=== PATIENT | female | born 1955 | race Caucasian/White ===

== ENCOUNTER 2024-08-29 20:46 | Emergency (ER) | payer OTHER, SELFPAY ==
[2024-08-29 20:46] VITALS: BMI 28.8
[2024-08-29 21:02] VITALS: BP 157/95
[2024-08-29 21:16] LABS: % Basophils 0.7 % (0-2); % Eosinophils 2.6 % (0-6); % Immature Granulocytes 0.2 % (0-0.5); % Lymphocytes 26.5 % (20.5-51.1); % Monocytes 9.5 % (1.7-9.3); % Neutrophils 60.5 % (42.2-75.2); Absolute Eosinophils 0.1 10^3/uL (0-0.7); Absolute Lymphocytes 1.1 10^3/uL (1.2-3.4); Absolute Monocytes 0.4 10^3/uL (0.1-0.6); Absolute Neutrophils 2.5 10^3/uL (1.4-6.5); Hematocrit 38.5 % (37.0-47.0); Hemoglobin 12.8 g/dL (12.0-16.0); Mean Corp Hgb Conc. 33.2 g/dL (33.0-37.0); Mean Corpuscular Hgb 28.4 pg (27.0-31.0); Mean Corpuscular Volume 85.6 fL (81.0-99.0); Mean Platelet Volume 10.3 fL (7.4-10.4); Nucleated Red Blood Cells % 0 %; Platelet Count 185 10^3/uL (130-400); White Blood Cell Count 4.2 10^3/uL (4.8-10.8)
[2024-08-29 21:25] LABS: Urine Albumin Negative (Neg - Trace); Urine Bilirubin Negative (Negative); Urine Character Clear (Clear); Urine Color Yellow; Urine Glucose Negative (Negative); Urine Ketone Negative (Negative); Urine Leukocyte 1+ (Negative); Urine Nitrite Negative (Negative); Urine Occult Blood Negative (Negative); Urine Specific Gravity 1.005 (<1.030); Urine Urobilinogen Negative (Neg - 1+)
[2024-08-29 21:29] LABS: ALT (SGPT) 15 U/L (0-35); AST (SGOT) 21 U/L (14-36); Albumin 4.5 g/dl (3.5-5.0); Alkaline Phosphatase 72 U/L (38-126); Blood Urea Nitrogen 21 mg/dl (7-17); Carbon Dioxide 32 mmol/L (22-30); Chloride 99 mmol/L (98-107); Glucose 118 mg/dl (70-99); Lipase 158 U/L (23-300); Potassium 3.6 mmol/L (3.5-5.1); Sodium 137 mmol/L (135-145); Total Bilirubin 0.6 mg/dl (0.2-1.3); eGFR > 60.00
[2024-08-29 21:35] LABS: Urine Red Blood Cell 0-2 /HPF (0-2)
[2024-08-29 22:00] VITALS: BP 175/82
[2024-08-29 22:30] VITALS: BP 153/79
[2024-08-29 23:42] LABS: D-Dimer < 0.27 ug/mlFEU (0.00-0.50)
[2024-08-30 00:26] VITALS: BP 167/90
--- NOTE | 2024-08-30 00:54 | ED.GENMED ---
History of Present Illness
General
Chief Complaint: Abdominal Pain
Source: patient
Exam Limitations: none
Time Seen by Provider: 08/29/24 22:31
History of Present Illness
History of Present Illness:
69-year-old female presents complaining of pain to the right upper abdomen that started at 1030 this morning. Has been a constant pain but does come and go in waves. The pain is worse with deep breathing. No known injury. No fever or cough.
There is nausea but no vomiting. No prior abdominal surgical history. No other complaints at this time
Phy Exam
Physical Exam
Physical Exam:
General: Well-appearing female no acute respiratory distress
HEENT: Normocephalic atraumatic
Heart: Regular rate and rhythm
Lungs: Clear no wheeze
Abdomen is soft nontender nondistended
Extremities: No cyanosis
Course
Orders/Labs/Results
Orders:
Orders
08/29/24 21:00
Complete Blood Count/With Diff Urgent
Comprehensive Metabolic Panel Urgent
Lipase Urgent
08/29/24 21:17
Urine Culture Reflexed from UA [Urinalysis Reflex To Culture] Urgent
Date Specimen was Collected: 08/29/24
Time Specimen was Collected: 21:14
Urine Microscopic Reflex Cult Urgent
Urine Culture Urgent
NANI Source: U
Specimen Description:
Date Specimen was Collected: 08/29/24
Time Specimen was Collected: 21:14
08/29/24 22:51
US Abdomen Complete/Upper Urgent
Comment:
Reason For Exam: ruq pain
08/29/24 22:54
D-Dimer Urgent
08/30/24 01:07
CT Abd/pelvis W Iv Cont Urgent
Comment:
Reason For Exam: right upper abdominal pain
Ketorolac [Toradol] 15 mg IV NOW STA
Abnormal Lab Results
08/29/24 08/29/24
21:00 21:17
WBC 4.2 L 10^3/uL
(4.8-10.8)
Absolute Lymphs (auto) 1.1 L 10^3/uL
(1.2-3.4)
Monocytes % 9.5 H %
(1.7-9.3)
Carbon Dioxide 32 H mmol/L
(22-30)
BUN 21 H mg/dl
(7-17)
Glucose 118 H mg/dl
(70-99)
Leukocyte Esterase Rfl 1+ A
(Negative)
08/29/24 21:00
08/29/24 21:00
Vital Signs
Initial and Last Documented VS:
Initial Vital Signs
Pulse Resp BP Pulse Ox
99 20 157/95 99
08/29/24 21:02 08/29/24 21:02 08/29/24 21:02 08/29/24 21:02
Last Documented Vital Signs
Temp Pulse Resp BP Pulse Ox
98.5 F 76 16 167/90 96
08/29/24 22:00 08/29/24 22:54 08/29/24 22:15 08/30/24 00:26 08/30/24 02:15
MDM/Problems Addressed
Differential Diagnosis Includes:
Right upper quadrant abdominal pain pleuritic in nature. Consider biliary colic versus cholecystitis versus PE versus abdominal strain
Ultrasound is negative other than borderline dilated common bile duct at 6.5 mm lipase is normal. D-dimer is negative and I suspect this is unlikely to be PE
*Critical Care Note
Total Time (30-74mins, 75-104mins- exclusive of procedures): Not Applicable
Update Note
Update Note:
Ultrasound shows mildly dilated common bile duct. CT was ordered which shows moderate to large amount of colonic stool to suggest constipation and also sees potentially dilated common bile duct. Pain was relieved with Toradol lipase and liver
functions normal. Question possible musculoskeletal discomfort versus constipation. No gallstones are visualized. Recommend follow-up with GI. She has an appointment in 4 days with GI. No indication for admission
ED Attending Note
-
Portions of this chart may have been created with voice recognition software.� Occasional wrong word or��sound alike� substitutions may have occurred due to the inherent limitations of voice recognition software.
Discharge Plan
Departure
Patient Disposition: Home (Routine Discharge)
Date of Disposition: 08/30/24
Time of Disposition: 02:58
Patient with high blood pressure during this ER visit?: No
Discharge Problem:
Abdominal pain
Instructions: Abdominal Pain
Referrals:
Anastasia Colón CRNP [Family Provider] -
Activity Restrictions/Additional Instructions:
Use ibuprofen or Tylenol for pain. Return here for worsening symptoms otherwise follow-up with GI as planned
Interventions
Interventions:
*Risk Screen - Suicide Last Done: 08/29/24 21:13
*General Assessment Last Done: 08/29/24 21:13
*Neglect/Abuse Screening Last Done: 08/29/24 22:03
*ED- Fall Risk Assessment Last Done: 08/29/24 21:13
*ED COVID-19 Vaccine History Last Done: 08/29/24 21:13
HN-Qjseth-Iscnmjilsb Assessment Last Done: 08/30/24 02:19
Discharge Date and Time
Print Language: SRI LANKAN
[2024-08-30] MEDS: TORADOL 15 MG IV (01:59)
[2024-08-30 03:14] VITALS: BP 152/91
== END 2024-08-30 03:15 | disposition home or self-care (01) ==
LOC: EMR 20:46
PROVIDERS: Emergency Medicine; Physician Assistant; EMERGENCY PHYSICIAN Emergency Medicine; FAMILY PHYSICIAN Nurse Practitioner Family
DX: R10.11 Right upper quadrant pain (principal); K83.8 Other specified diseases of biliary tract; R11.0 Nausea
CPT/HCPCS: 99284; 96374; 74177; 76700; 80053; 81003; 81015; 83690; 85025; 85379; 87086; Q9967

== ENCOUNTER → 2025-03-21 09:23 | Outpatient (REF) | payer OTHER, SELFPAY ==
[2025-03-21 09:43] VITALS: BMI 26.7
[2025-03-21 09:52] VITALS: BP 167/99; BP_SYST 91
[2025-03-21] MEDS: ATIVAN 0.5 MG PO (09:58)
[2025-03-21 10:00] LABS: INR 1.15; PT 15.1 Sec (11.4-14.6)
[2025-03-21 10:02] LABS: Hematocrit 28.9 % (37.0-47.0); Hemoglobin 9.1 g/dL (12.0-16.0); Mean Corp Hgb Conc. 31.5 g/dL (33.0-37.0); Mean Corpuscular Volume 90.9 fL (81.0-99.0); Red Cell Dist. Width 15.2 % (11.5-14.5)
[2025-03-21 10:58] LABS: Platelet Count 89 10^3/uL (130-400)
[2025-03-21 11:17] VITALS: BP 151/97
[2025-03-21 11:18] LABS: Absolute Neutrophils -Man Diff 1.9 10^3/uL (1.4-6.5)
[2025-03-21 11:21] LABS: Normal RBC Morphology No; Platelets Checked Yes
[2025-03-21 11:23] LABS: Total Cells Counted 100
[2025-03-21 11:24] LABS: Rouleaux 2+
[2025-03-21 11:25] LABS: Microcytosis 1+
== END ==
LOC: RADI 09:23
PROVIDERS: ATTENDING PHYSICIAN Internal Medicine Hematology & Oncology; FAMILY PHYSICIAN Nurse Practitioner Family; REFERRING PHYSICIAN Physician Assistant
DX: D69.6 Thrombocytopenia, unspecified (principal); E83.52 Hypercalcemia; D68.8 Other specified coagulation defects; D64.9 Anemia, unspecified; D72.829 Elevated white blood cell count, unspecified
CPT/HCPCS: 36415; 38222; 77012; 80053; 81003; 81015; 82232; 83521; 83615; 83690; 85025; 85610; 85730; 85810; 88305; 88311; 88312; 88313; 93005; 99284

== ENCOUNTER 2025-03-21 16:04 | Emergency (ER) | payer OTHER, SELFPAY ==
[2025-03-21 16:22] VITALS: BP 133/95
[2025-03-21 17:01] LABS: Urine Character Clear (Clear)
[2025-03-21 17:08] LABS: APTT 31.4 Sec (23.4-35.0); INR 1.26; PT 16.1 Sec (11.4-14.6)
[2025-03-21 17:11] LABS: Urine Red Blood Cell 0-2 /HPF (0-2)
[2025-03-21 17:35] LABS: ALT (SGPT) 61 U/L (0-35); AST (SGOT) 55 U/L (14-36); Albumin 4.5 g/dl (3.5-5.0); Alkaline Phosphatase 74 U/L (38-126); Blood Urea Nitrogen 18 mg/dl (7-17); Calcium 11.8 mg/dl (8.4-10.2); Carbon Dioxide 27 mmol/L (22-30); Chloride 98 mmol/L (98-107); Glucose 126 mg/dl (70-99); Lipase 241 U/L (23-300); Potassium 3.7 mmol/L (3.5-5.1); Sodium 141 mmol/L (135-145); eGFR 49.61
[2025-03-21 17:37] LABS: Absolute Neutrophils -Man Diff 2.1 10^3/uL (1.4-6.5); Hematocrit 28.7 % (37.0-47.0); Hemoglobin 8.8 g/dL (12.0-16.0); Mean Corp Hgb Conc. 30.7 g/dL (33.0-37.0); Mean Corpuscular Volume 92.0 fL (81.0-99.0); Platelet Count 81 10^3/uL (130-400); Red Cell Dist. Width 15.5 % (11.5-14.5)
[2025-03-21 17:38] LABS: Normal RBC Morphology No; Platelets Checked Yes; Rouleaux 3+
[2025-03-21 17:39] LABS: Anisocytosis 1+; Hypochromasia 1+; Total Cells Counted 100
[2025-03-21 17:46] LABS: Total Protein 13.4 g/dl (6.3-8.2)
[2025-03-21 18:08] VITALS: BP 134/73
[2025-03-21] MEDS: ULTRAM 50 MG PO (19:50)
--- NOTE | 2025-03-21 19:52 | ED.GENMED ---
History of Present Illness
General
Chief Complaint: Skin Problem
Source: patient
Time Seen by Provider: 03/21/25 17:08
History of Present Illness
History of Present Illness:
69-year-old female presents to the emergency room primarily to have evaluation of bleeding from a bone marrow biopsy site. Patient had a bone marrow biopsy performed earlier today. She is being worked up for multiple myeloma. She has been
experiencing bone pain, fatigue, abnormal blood tests. Patient states that since coming home from the biopsy sites she bled through 3 dressings. I tried direct pressure and cannot get the bleeding to stop. Patient also complaining of chest pain
and as well as intermittent abdominal pain. She also has pain in her thighs. No fever or chills. Patient has taken either oxycodone or hydrocodone for the pain previously which did not really help it did cause her to have a headache.
Phy Exam
Physical Exam
Physical Exam:
General: Awake, Alert, Oriented X3. No acute distress.
Vitals: unremarkable
Head: Atraumatic
Eyes: Pupils equal, EOMI
Throat: Airway intact, no exudates
Neck: Trachea midline
Lungs: Clear and equal b/l
Heart: Regular rate, no murmurs
Abd: Soft, Nontender, No pulsatile mass
Neuro: nonfocal
Skin: Warm, dry, no rash. Puncture wound noted left pos iliac crest (after removal of blood soaked dressing). No surrounding hematoma
Extremities: pulses equal b/l, no edema
Course
Orders/Labs/Results
Orders:
Orders
03/21/25 16:32
Electrocardiogram (*1) Urgent
Reason for Study: Chest Pain
EKG- Treatment ONCE
03/21/25 16:39
Urinalysis Reflex To Culture Urgent
Date Specimen was Collected: 03/21/25
Time Specimen was Collected: 16:32
Urine Microscopic Reflex Cult Urgent
03/21/25 16:51
CMP [Comprehensive Metabolic Panel] Urgent
Complete Blood Count/With Diff Urgent
Lipase Urgent
Manual Differential Urgent
PT/INR [Prothrombin Time] Urgent
PTT Urgent
03/21/25 19:22
Tramadol HCl [Ultram] 50 mg PO NOW STA
03/21/25 20:01
Add On- LAB Urgent
Tests Added?: serum viscosity, ldh, [id number]
Abnormal Lab Results
03/21/25 03/21/25
16:39 16:51
WBC 3.6 L 10^3/uL
(4.8-10.8)
RBC 3.12 L 10^6/uL
(4.20-5.40)
Hgb 8.8 L g/dL
(12.0-16.0)
Hct 28.7 L %
(37.0-47.0)
MCHC 30.7 L g/dL
(33.0-37.0)
RDW 15.5 H %
(11.5-14.5)
Plt Count 81 L 10^3/uL
(130-400)
PT 16.1 H Sec
(11.4-14.6)
BUN 18 H mg/dl
(7-17)
Creatinine 1.2 H mg/dL
(0.6-1.0)
Glucose 126 H mg/dl
(70-99)
Calcium 11.8 H mg/dl
(8.4-10.2)
AST 55 H U/L
(14-36)
ALT 61 H U/L
(0-35)
Total Protein 13.4 H g/dl
(6.3-8.2)
Ur Occult Blood Reflex 2+ A
(Negative)
Urine Bacteria (Reflex) Few A
(Negative)
Urine Albumin (Reflex) 3+ A
(Neg - Trace)
03/21/25 16:51
03/21/25 16:51
Vital Signs
Initial and Last Documented VS:
Initial Vital Signs
Temp Pulse Resp BP Pulse Ox
98.3 F 92 18 133/95 99
03/21/25 16:22 03/21/25 16:22 03/21/25 16:22 03/21/25 16:22 03/21/25 16:22
Last Documented Vital Signs
Temp Pulse Resp BP Pulse Ox
98.3 F 84 20 151/86 97
03/21/25 16:22 03/21/25 19:54 03/21/25 19:54 03/21/25 19:54 03/21/25 19:56
MDM/Problems Addressed
Differential Diagnosis Includes:
Bleeding from bone marrow biopsy site secondary to thrombocytopenia, hypercoagulable state,
MDM/Problems Addressed:
Patient presents with oozing from puncture site. Initially attempted direct pressure without success. Wound injected with lidocaine with epinephrine and a Surgifoam dressing applied with direct pressure for 10 minutes. Ultimately bleeding was
controlled. Communicated with Dr. Ruthie Abebe who spoke with the patient about her blood results and overall condition. Dr. Reid will start a prednisone course. I will send a prescription for tramadol.
*Pulse Oximetry
SaO2: 97
Oxygen Mode of Delivery: Room air
Patient hypoxic: no
*Critical Care Note
Total Time (30-74mins, 75-104mins- exclusive of procedures): Not Applicable
ED Attending Note
-
Portions of this chart may have been created with voice recognition software.� Occasional wrong word or��sound alike� substitutions may have occurred due to the inherent limitations of voice recognition software.
Discharge Plan
Departure
Patient Disposition: Home (Routine Discharge)
Date of Disposition: 03/21/25
Time of Disposition: 19:53
Patient with high blood pressure during this ER visit?: No
Condition: Good
Discharge Problem:
Postoperative bleeding from incision, Hypercalcemia, Bone pain
Instructions: Multiple myeloma, Puncture Wound
Prescriptions:
New
tramadol 50 mg tablet
50 mg PO TID PRN (Reason: Pain) Qty: 30 0RF
No Action
multivitamin Tablet
1 tab PO DAILY
amlodipine 5 mg Tablet
5 mg PO DAILY
levothyroxine [Synthroid] 50 mcg Tablet
50 mcg PO DAILY
hydrochlorothiazide 25 mg Tablet
25 mg PO DAILY
metoprolol succinate 25 mg Tablet Extended Release 24 Hr
12.5 mg PO QPM
rosuvastatin 5 mg Tablet
10 mg PO QPM
Referrals:
Anastasia Colón CRNP [Family Provider, Family Practice]
Bruno Horn MD [Active, Hematology / Oncology]
Interventions
Interventions:
*Risk Screen - Suicide Last Done: 03/21/25 17:05
*General Assessment Last Done: 03/21/25 17:05
*Neglect/Abuse Screening Last Done: 03/21/25 17:05
*ED- Fall Risk Assessment Last Done: 03/21/25 17:04
*ED COVID-19 Vaccine History Last Done: 03/21/25 17:04
*ED Influenza Vaccine History Last Done: 03/21/25 17:04
ED-Skin Assessment Last Done: 03/21/25 19:12
Discharge Date and Time
Print Language: FINNISH
[2025-03-21 19:54] VITALS: BP 151/86
[2025-03-21 20:22] LABS: LDH 231 U/L (120-246)
[2025-03-24 00:17] LABS: Free Kappa Light Chains,Quant 322.98 mg/L (3.30-19.40); Free Lambda Light Chains,Quant 3.03 mg/L (5.71-26.30); Kappa/Lambda Fr Light Ratio 106.59 (0.26-1.65)
== END 2025-03-21 20:20 | disposition home or self-care (01) ==
LOC: EMR 16:04
PROVIDERS: Emergency Medicine; EMERGENCY PHYSICIAN Emergency Medicine; FAMILY PHYSICIAN Nurse Practitioner Family
DX: L76.22 Postprocedural hemorrhage of skin and subcutaneous tissue following other procedure (principal); E83.52 Hypercalcemia; M89.8X9 Other specified disorders of bone, unspecified site
CPT/HCPCS: 80053; 81003; 81015; 82232; 83521; 83615; 83690; 85025; 85610; 85730; 85810; 93005; 99284

== ENCOUNTER 2025-03-28 08:25 | Emergency (ER) | payer OTHER, SELFPAY ==
[2025-03-28 08:29] VITALS: BP 149/88
[2025-03-28 08:50] VITALS: BMI 25.9
[2025-03-28 08:52] VITALS: BP 158/99
--- NOTE | 2025-03-28 08:54 | ED.GENMED ---
History of Present Illness
<Effie Johnson MD - Last Filed: 03/28/25 14:09>
General
Chief Complaint: Chest Pain
Source: patient
Exam Limitations: none
Time Seen by Provider: 03/28/25 08:41
Nursing documentation reviewed up to this point in time: agreed with
<Teresa Freeman MD, Resident - Last Filed: 03/28/25 13:59>
History of Present Illness
History of Present Illness:
69-year-old female with history of multiple myeloma presents to the ER for right sided chest pain. She was recently diagnosed with MM and was started on a steroid taper of dexamethasone 40mg on . On Friday, she started to notice some
heart fluttering and overall felt fatigued and jittery at the same time. Last night, she started to experience some right sided chest pain that she describes as pressure rather than pain, 6/10, constant, radiating into the jaw and bilateral shoulder
blades. Nothing seems to make it better, pressing on her chest makes it worse. Exertion does not make it worse. She endorses palpitations. She endorses some burning with urination. She had a UTI last month treated with antibiotics and now she feels
like it might be returning. She also endorses some right sided lower back pain that started last night close to her prior bone biopsy site. Its painful with movement and palpation. She denies any fevers, chills, SOB, cough, URI symptoms, ab pain,
N/V/D/C, numbness or tingling, calf swelling or erythema.
She does have a history of pathological rib fractures with MM. She states the pain feels different to her than previous.
Past History
<Effie Johnson MD - Last Filed: 03/28/25 14:09>
Past History
ED Past Surgical History: Other
Social History
Employment: Other
Family History
Family History: Other
<Teresa Freeman MD, Resident - Last Filed: 03/28/25 13:59>
Past History
ED Past Medical History: Other (Multiple myeloma, thyroid goiter, HTN, hemifacial spasms )
ED Past Surgical History: Other (Microvascular decompression x2 )
Social History
Tobacco: Non-smoker
Alcohol: None
Drug: None
Personal:
Living: with family
Review of Systems
<Effie Johnson MD - Last Filed: 03/28/25 14:09>
Review of Systems
Allergies reviewed?: Yes
Endocrine: Reports no symptoms
Hematologic/Lymphatic: Reports no symptoms
Psychiatric: Reports no symptoms
<Teresa Freeman MD, Resident - Last Filed: 03/28/25 13:59>
Review of Systems
Constitutional: Reports no symptoms
EENT: Reports no symptoms
Respiratory: Reports no symptoms
Cardiac: Reports chest pain and palpitations
ABD/GI: Reports no symptoms
: Reports dysuria
Musculoskeletal: Reports back pain
Neurological: Reports no symptoms
Phy Exam
<Effie Johnson MD - Last Filed: 03/28/25 14:09>
Physical Exam
Physical Exam:
General: Appears chronically ill, fatigued
Cardiac: Regular S1, S2, no murmurs, rubs or gallops
Physical Exam
General: no apparent distress, not acutely ill
Neck: supple.
Heart: s1/s2 regular rate and rhythm, no murmur. equal radial pulses.
Lungs: no acute respiratory distress. clear bilaterally
Abdomen: normal bowel sounds. not tender. Mild soft tissue tenderness just right of lumbar spine midline without any areas of erythema or fluctuance. No vertebral spine tenderness of T, L or S spine
Neuro: alert and oriented. no focal neurological deficits
Skin: no rash
Psychiatric: well kept. interactive and cooperative
Extremities: no edema. no calf tenderness. negative homans. good distal pulses
<Teresa Freeman MD, Resident - Last Filed: 03/28/25 13:59>
Physical Exam
Physical Exam:
General: Chronically ill however nontoxic
ENT: PERRLA
Neck: Supple
Cardiac: Regular S1-S2, no rubs murmurs or gallops
Pulmonary: Bilateral clear breath sounds
Abdominal: Soft, nontender, nondistended, bowel sounds normal x 4
Extremities: No edema, calf tenderness or erythema
Musculoskeletal: Tenderness with palpation of right chest located in medial lower para sternal border
Psychiatric: Mood is stable
Scores
<Teresa Freeman MD, Resident - Last Filed: 03/28/25 13:59>
Heart Score for Chest Pain Patients
STEMI patient?: Not applicable
Course
<Effie Johnson MD - Last Filed: 03/28/25 14:09>
Orders/Labs/Results
Orders:
Orders
03/28/25 08:26
ECG [Electrocardiogram (*1)] Urgent
Reason for Study: Chest Pain
EKG- Treatment ONCE
03/28/25 08:47
Cardiac Monitoring- Treatment ONCE
IV Insert/Care/Rem.- Treatment PRN
O2 Therapy [RESP] Urgent
Titrate/Wean O2 to maintain O2 sat greater than (%): 90
Special Instructions: Maintain sats >/=90%
Pulse Ox/spot Check [RESP] Urgent
Quantity: 1
Special Instructions: ON ROOM AIR
03/28/25 08:48
Complete Blood Count/With Diff Urgent
Comprehensive Metabolic Panel Urgent
Magnesium Urgent
Comment: ADD ON
Troponin I Urgent
03/28/25 09:20
Urinalysis Reflex To Culture Urgent
Date Specimen was Collected: 03/28/25
Time Specimen was Collected: 09:16
03/28/25 09:26
Add On- LAB Urgent
Tests Added?: magnesium
03/28/25 09:27
Potassium Chloride [KCl] 40 meq PO NOW STA
03/28/25 09:44
CT Chest/abd/pelvis Angio W/wo Urgent
Comment:
Reason For Exam: CP, scapular pain, R low back pain
03/28/25 09:45
0.9% Sodium Chloride 1000 ml [Nss] 1,000 ml IV BOLUS
03/28/25 11:02
Troponin I Urgent
Abnormal Lab Results
03/28/25
08:48
WBC 2.5 L 10^3/uL
(4.8-10.8)
RBC 3.33 L 10^6/uL
(4.20-5.40)
Hgb 9.5 L g/dL
(12.0-16.0)
Hct 30.6 L %
(37.0-47.0)
MCHC 31.0 L g/dL
(33.0-37.0)
RDW 15.8 H %
(11.5-14.5)
Plt Count 113 L D 10^3/uL
(130-400)
Absolute Lymphs (auto) 0.4 L 10^3/uL
(1.2-3.4)
Lymphocytes % 16.5 L %
(20.5-51.1)
Potassium 2.9 L mmol/L
(3.5-5.1)
BUN 24 H mg/dl
(7-17)
Glucose 112 H mg/dl
(70-99)
ALT 44 H U/L
(0-35)
Total Protein 11.7 H g/dl
(6.3-8.2)
03/28/25 08:48
03/28/25 08:48
Vital Signs
Initial and Last Documented VS:
Initial Vital Signs
Temp Pulse Resp BP Pulse Ox
98.1 F 95 18 149/88 100
03/28/25 08:29 03/28/25 08:29 03/28/25 08:29 03/28/25 08:29 03/28/25 08:29
Last Documented Vital Signs
Temp Pulse Resp BP Pulse Ox
98.1 F 62 16 142/83 98
03/28/25 08:29 03/28/25 11:59 03/28/25 11:59 03/28/25 12:00 03/28/25 11:00
<Teresa Freeman MD, Resident - Last Filed: 03/28/25 13:59>
Orders/Labs/Results
Orders:
Orders
03/28/25 08:26
ECG [Electrocardiogram (*1)] Urgent
Reason for Study: Chest Pain
EKG- Treatment ONCE
03/28/25 08:47
Cardiac Monitoring- Treatment ONCE
IV Insert/Care/Rem.- Treatment PRN
O2 Therapy [RESP] Urgent
Titrate/Wean O2 to maintain O2 sat greater than (%): 90
Special Instructions: Maintain sats >/=90%
Pulse Ox/spot Check [RESP] Urgent
Quantity: 1
Special Instructions: ON ROOM AIR
03/28/25 08:48
Complete Blood Count/With Diff Urgent
Comprehensive Metabolic Panel Urgent
Magnesium Urgent
Comment: ADD ON
Troponin I Urgent
03/28/25 09:20
Urinalysis Reflex To Culture Urgent
Date Specimen was Collected: 03/28/25
Time Specimen was Collected: 09:16
03/28/25 09:26
Add On- LAB Urgent
Tests Added?: magnesium
03/28/25 09:27
Potassium Chloride [KCl] 40 meq PO NOW STA
03/28/25 09:44
CT Chest/abd/pelvis Angio W/wo Urgent
Comment:
Reason For Exam: CP, scapular pain, R low back pain
03/28/25 09:45
0.9% Sodium Chloride 1000 ml [Nss] 1,000 ml IV BOLUS
03/28/25 11:02
Troponin I Urgent
Abnormal Lab Results
03/28/25
08:48
WBC 2.5 L 10^3/uL
(4.8-10.8)
RBC 3.33 L 10^6/uL
(4.20-5.40)
Hgb 9.5 L g/dL
(12.0-16.0)
Hct 30.6 L %
(37.0-47.0)
MCHC 31.0 L g/dL
(33.0-37.0)
RDW 15.8 H %
(11.5-14.5)
Plt Count 113 L D 10^3/uL
(130-400)
Absolute Lymphs (auto) 0.4 L 10^3/uL
(1.2-3.4)
Lymphocytes % 16.5 L %
(20.5-51.1)
Potassium 2.9 L mmol/L
(3.5-5.1)
BUN 24 H mg/dl
(7-17)
Glucose 112 H mg/dl
(70-99)
ALT 44 H U/L
(0-35)
Total Protein 11.7 H g/dl
(6.3-8.2)
03/28/25 08:48
03/28/25 08:48
Vital Signs
Initial and Last Documented VS:
Initial Vital Signs
Temp Pulse Resp BP Pulse Ox
98.1 F 95 18 149/88 100
03/28/25 08:29 03/28/25 08:29 03/28/25 08:29 03/28/25 08:29 03/28/25 08:29
Last Documented Vital Signs
Temp Pulse Resp BP Pulse Ox
98.1 F 62 16 142/83 98
03/28/25 08:29 03/28/25 11:59 03/28/25 11:59 03/28/25 12:00 03/28/25 11:00
<Effie Johnson MD - Last Filed: 03/28/25 14:09>
MDM/Problems Addressed
Differential Diagnosis Includes:
pulmonary embolism, aortic dissection, pneumonia, rib fracture
MDM/Problems Addressed:
Patient presents with acute right sided chest pain, scapular pain and right lower back pain
Chronic conditions affecting care:
Multiple myeloma
Acute Exacerbation and/or Progression of Chronic Illness:
Patient may have acute bony lesion or bony fracture due to progression of multiple myeloma
<Effie Johnson MD - Last Filed: 03/28/25 14:09>
*Radiology
Radiology exam reviewed: radiology read reviewed
*Pulse Oximetry
SaO2: 100
Oxygen Mode of Delivery: Room air
Patient hypoxic: no
*EKG
Interpreted by ED Provider?: Yes
Interpretation: abnormal
Comparison EKG: changes noted (No PVCs seen)
Rate: normal
Rhythm: sinus
Dunnell: left axis deviation
Interval: normal interval
QRS Pattern: normal QRS
Ischemia: non-specific ST changes
*Home Advisor Interpretation
Rate: normal
Interpretation: normal
Rhythm: sinus
Data Reviewed
Review of Other/Old Records Reveals: Radiology Studies (Reviewed CT abdomen pelvis from August 2024 which shows no sign of kidney stone or hydronephrosis)
Source: patient
<Teresa Freeman MD, Resident - Last Filed: 03/28/25 13:59>
*Critical Care Note
Total Time (30-74mins, 75-104mins- exclusive of procedures): Not Applicable
<Effie Johnson MD - Last Filed: 03/28/25 14:09>
Patient Management
Social determinants of health affecting care: Living situation and Strong social support
<Teresa Freeman MD, Resident - Last Filed: 03/28/25 13:59>
Update Note
Update Note:
CTA chest abdomen pelvis unremarkable for acute cause of chest pain. No signs of repeat fracture, pleural effusion, PE, aortic dissection. Troponins x 2 negative, EKG nonischemic. UA clean. Pancytopenia noted and consistent with multiple
myeloma. Hypokalemia 2.9 - repleted. Recommended follow-up outpatient with cardiology for further evaluation as exact cause of chest pain is unclear. Referral provided.
ED Attending Note
<Effie Johnson MD - Last Filed: 03/28/25 14:09>
-
Portions of this chart may have been created with voice recognition software.� Occasional wrong word or��sound alike� substitutions may have occurred due to the inherent limitations of voice recognition software.
Discharge Plan
Departure
Patient Disposition: Home (Routine Discharge)
Date of Disposition: 03/28/25
Time of Disposition: 11:44
Patient with high blood pressure during this ER visit?: Yes
Condition: Good
Covid-19: Not Applicable
Discharge Problem:
Chest pain
Instructions: Chest Pain CBC Follow Up
Prescriptions:
No Action
multivitamin Tablet
1 tab PO DAILY
amlodipine 5 mg Tablet
5 mg PO DAILY
levothyroxine [Synthroid] 50 mcg Tablet
50 mcg PO DAILY
hydrochlorothiazide 25 mg Tablet
25 mg PO DAILY
metoprolol succinate 25 mg Tablet Extended Release 24 Hr
12.5 mg PO QPM
rosuvastatin 5 mg Tablet
10 mg PO QPM
tramadol 50 mg tablet
50 mg PO TID PRN (Reason: Pain) Qty: 30 0RF
Referrals:
Taj Urbina MD [Active, Cardiology]
Referral Note: If you do not hear from the cardiology office within 2 to 3 days, please give them a call to schedule an appointment
Anastasia Colón CRNP [Family Provider, Family Practice]
Interventions
Interventions:
*Risk Screen - Suicide Last Done: 03/28/25 08:27
*General Assessment Last Done: 03/28/25 08:27
*Neglect/Abuse Screening Last Done: 03/28/25 08:56
*ED- Fall Risk Assessment Last Done: 03/28/25 08:56
*ED COVID-19 Vaccine History Last Done: 03/28/25 08:56
*ED Influenza Vaccine History Last Done: 03/28/25 08:56
*Nursing Disposition Last Done: 03/28/25 12:10
ED- Cardiac Assessment Last Done: 03/28/25 08:58
Discharge Date and Time
Discharge Date/Time: 03/28/25 12:12
Print Language: GRENADIAN
[2025-03-28 09:11] VITALS: BP 150/80
[2025-03-28 09:14] LABS: Hematocrit 30.6 % (37.0-47.0); Hemoglobin 9.5 g/dL (12.0-16.0); Mean Corp Hgb Conc. 31.0 g/dL (33.0-37.0); Mean Corpuscular Volume 91.9 fL (81.0-99.0); Nucleated Red Blood Cells % 0.8 %; Platelet Count 113 10^3/uL (130-400); Red Cell Dist. Width 15.8 % (11.5-14.5)
[2025-03-28 09:24] LABS: ALT (SGPT) 44 U/L (0-35); AST (SGOT) 22 U/L (14-36); Albumin 4.6 g/dl (3.5-5.0); Alkaline Phosphatase 71 U/L (38-126); Blood Urea Nitrogen 24 mg/dl (7-17); Calcium 10.2 mg/dl (8.4-10.2); Carbon Dioxide 26 mmol/L (22-30); Chloride 98 mmol/L (98-107); Estimated Creatinine Clearance 50 ml/min; Glucose 112 mg/dl (70-99); Potassium 2.9 mmol/L (3.5-5.1); Sodium 140 mmol/L (135-145); eGFR > 60.00
[2025-03-28 09:35] LABS: Total Protein 11.7 g/dl (6.3-8.2)
[2025-03-28 09:35] LABS: Urine Character Clear (Clear)
[2025-03-28 09:44] LABS: Troponin I < 0.012 ng/ml
[2025-03-28] MEDS: KCL 40 MEQ PO (09:47)
[2025-03-28] MEDS: NSS 1000 IV (09:51)
[2025-03-28 10:28] VITALS: BP 145/79
[2025-03-28 11:00] VITALS: BP 141/69
[2025-03-28 11:16] LABS: Magnesium 2.0 mg/dl (1.6-2.3)
[2025-03-28 11:41] LABS: Troponin I < 0.012 ng/ml
[2025-03-28 12:00] VITALS: BP 142/83
== END 2025-03-28 12:12 | disposition home or self-care (01) ==
LOC: EMR 08:25
PROVIDERS: EMERGENCY PHYSICIAN Emergency Medicine; FAMILY PHYSICIAN Nurse Practitioner Family
DX: R07.9 Chest pain, unspecified (principal); E87.6 Hypokalemia; C90.00 Multiple myeloma not having achieved remission; I10 Essential (primary) hypertension
CPT/HCPCS: 99284; 96360; 71275; 74174; 80053; 81003; 83735; 84484; 85025; 93005; Q9967

== ENCOUNTER → 2025-03-30 07:40 | Outpatient (REF) | payer OTHER, SELFPAY ==
[2025-03-30 07:27] LABS: Glucose 121 mg/dl (70-99)
== END ==
LOC: PET 07:40
PROVIDERS: ATTENDING PHYSICIAN Internal Medicine Hematology & Oncology
DX: C90.00 Multiple myeloma not having achieved remission (principal)
CPT/HCPCS: 36415; 78816; 82947; A9552

== ENCOUNTER → 2025-03-31 15:15 | Outpatient (REF) | payer OTHER, SELFPAY ==
[2025-03-31 14:49] LABS: Hematocrit 25.9 % (37.0-47.0); Hemoglobin 8.2 g/dL (12.0-16.0); Mean Corp Hgb Conc. 31.7 g/dL (33.0-37.0); Mean Corpuscular Volume 91.8 fL (81.0-99.0); Platelet Count 136 10^3/uL (130-400); Red Cell Dist. Width 16.1 % (11.5-14.5)
[2025-03-31 16:06] LABS: ALT (SGPT) 35 U/L (0-35); AST (SGOT) 19 U/L (14-36); Albumin 4.4 g/dl (3.5-5.0); Alkaline Phosphatase 89 U/L (38-126); Blood Urea Nitrogen 25 mg/dl (7-17); Calcium 9.7 mg/dl (8.4-10.2); Carbon Dioxide 26 mmol/L (22-30); Chloride 98 mmol/L (98-107); Glucose 143 mg/dl (70-99); Potassium 3.6 mmol/L (3.5-5.1); Sodium 131 mmol/L (135-145); Total Protein 10.7 g/dl (6.3-8.2); eGFR > 60.00
[2025-03-31 19:16] LABS: Hepatitis B Surface Antigen Negative (Negative)
== END ==
LOC: OIDL 15:15
PROVIDERS: ATTENDING PHYSICIAN Internal Medicine Hematology & Oncology
DX: D72.819 Decreased white blood cell count, unspecified (principal); D69.6 Thrombocytopenia, unspecified; E83.52 Hypercalcemia; D64.9 Anemia, unspecified; C90.00 Multiple myeloma not having achieved remission; R70.1 Abnormal plasma viscosity
CPT/HCPCS: 80053; 82784; 83521; 84155; 84165; 85025; 86334; 86704; 86706; 86850; 86900; 86901; 87340

== ENCOUNTER → 2025-06-07 09:51 | Outpatient (REF) | payer OTHER, SELFPAY | LOC: RSP 09:51 | PROVIDERS: ATTENDING PHYSICIAN Internal Medicine Hematology & Oncology; FAMILY PHYSICIAN Nurse Practitioner Family | DX: C90.00 Multiple myeloma not having achieved remission (principal) | CPT/HCPCS: 88738; 93306; 94010; 94727; 94729 ==